=== PATIENT | female | born 1975 | race Caucasian/White ===

== ENCOUNTER 2022-09-25 15:28 | Inpatient (IN) | payer BC ==
[~2022-09-25] VITALS: Ht 170.2 cm; Wt 53.1 kg
[2022-09-25] MEDS ORDERED: SODIUM CHLORIDE 0.9% 1,000 ML IV ONE (19:00)
[2022-09-25] MEDS ORDERED: THIAMINE HCL 100 MG/1 ML 2ML VIAL IV ONE (19:00)
[2022-09-25] MEDS ORDERED: FOLIC ACID 1 MG, THIAMINE HCL 100 MG, MVI, ADULT NO.1 10 ML in DEXTROSE 5% WATER 1,000 ML IV ONE ×4 (19:00)
[2022-09-25] MEDS ORDERED: LORAZEPAM 2MG/ML CPJ IV ONE (19:00)
[2022-09-25 19:25] LABS: BASOPHILS % 0.4 % (0.0-2.0); HEMATOCRIT. 35.4 % (36.0-48.0); HEMOGLOBIN. 12.6 g/dL (12.0-16.0); MEAN CORPUSCULAR HEMOGLOBIN 34.4 pg (28.0-32.0); MEAN CORPUSCULAR VOLUME 96.4 fL (81.0-99.0); MEAN PLATELET VOLUME 7.2 fl (7.4-10.4); MONOCYTES % 4.2 % (2.0-8.0); NEUTROPHILS % 79.4 % (40.0-76.0); PLATELET 477 x1000/uL (130-400); RED BLOOD CELL COUNT 3.67 mill/uL (4.2-5.4)
[2022-09-25 19:31] LABS: CHLORIDE 97 mEq/L (98-107)
[2022-09-25 20:02] LABS: CLARITY URINE CLEAR (CLEAR); COLOR URINE YELLOW (YELLOW); KETONES URINE NEGATIVE (NEGATIVE); LEUKOCYTE ESTERASE URINE NEGATIVE (NEGATIVE); NITRITE URINE NEGATIVE (NEGATIVE); OCCULT BLOOD URINE NEGATIVE (NEGATIVE); PROTEIN URINE NEGATIVE (NEGATIVE); UROBILINOGEN URINE 0.2 E.U./dL (0.2-1.0)
[2022-09-25 20:13] LABS: HCG SCREEN NEGATIVE
[2022-09-25 20:17] LABS: INR 1.1; PARTIAL THROMBOPLASTIN TIME 29.7 sec (23.4-31.0); PROTHROMBIN TIME 11.9 sec (9.6-11.0)
[2022-09-25 20:33] LABS: *AMPHETAMINES SCREEN URINE NEGATIVE (NEGATIVE); *BARBITURATES SCREEN URINE NEGATIVE (NEGATIVE); *BENZODIAZEPINES SCREEN URINE NEGATIVE (NEGATIVE); *COCAINE SCREEN URINE NEGATIVE (NEGATIVE); METHADONE URINE SCREEN NEGATIVE (NEGATIVE); OPIATES URINE SCREEN NEGATIVE (NEGATIVE); PHENCYCLIDINE URINE SCREEN NEGATIVE (NEGATIVE)
[2022-09-25 20:34] LABS: CANNABINOID URINE SCREEN PRESUMTIVE POSITIVE (NEGATIVE)
[2022-09-25 20:49] LABS: ETHANOL BLOOD 326 mg/dL
[2022-09-26] MEDS: LORAZEPAM 2MG/ML CPJ IV PRN ×3 (01:08→16:23)
[2022-09-26 02:00] VITALS: BP 129/86
[2022-09-26 08:00] VITALS: BP 145/99
[2022-09-26] MEDS ORDERED: DOCUSATE SODIUM 100MG CAPSULE PO PRN (09:45)
[2022-09-26] MEDS ORDERED: ACETAMINOPHEN 325MG TABLET PO PRN ×2 (09:45)
[2022-09-26] MEDS ORDERED: GUAIFENESIN 200MG/10ML SUGAR FREE UDC PO PRN (09:45)
[2022-09-26] MEDS ORDERED: MAGNESIUM/ALUMINUM HYDROXIDE/SIMETHICONE 30ML UDC PO PRN (09:45)
[2022-09-26] MEDS ORDERED: ONDANSETRON HCL 4MG/2ML INJ IV PRN (09:45)
[2022-09-26] MEDS ORDERED: IPRATROPIUM/ALBUTEROL 0.5-3(2.5)MG/3ML NEB HHN PRN (09:45)
[2022-09-26] MEDS ORDERED: QUET300T2 PO (09:58)
[2022-09-26] MEDS ORDERED: ATEN50TA MT (09:59)
[2022-09-26] MEDS ORDERED: GABA-290 MT (09:59)
[2022-09-26] MEDS ORDERED: POTASSIUM CHLORIDE 20MEQ TABLET SR PO NR (10:00)
[2022-09-26] MEDS: ENOXAPARIN 40MG/0.4ML SYR SUBCUT SCH (10:21)
[2022-09-26] MEDS: FAMOTIDINE 20MG TABLET PO SCH ×2 (10:21→22:17)
[2022-09-26] MEDS: GABAPENTIN 300MG CAPSULE PO SCH ×2 (11:42→17:33)
[2022-09-26 12:00] VITALS: BP 144/87
[2022-09-26 16:00] VITALS: BP 135/94
[2022-09-26 18:14] VITALS: BP 130/86
[2022-09-26] MEDS ORDERED: FOLIC ACID 1 MG, THIAMINE HCL 100 MG, MVI, ADULT NO.1 10 ML in DEXTROSE 5% WATER 1,000 ML IV ONE ×4 (21:00)
[2022-09-26] MEDS ORDERED: QUETIAPINE FUMARATE 50MG TABLET PO SCH (21:00)
[2022-09-26] MEDS ORDERED: ATENOLOL 50 MG TABLET PO SCH (21:00)
[2022-09-27 04:00] VITALS: BP 114/77
[2022-09-27 08:00] VITALS: BP 120/79
[2022-09-27 08:44] LABS: BASOPHILS % 0.3 % (0.0-2.0); EOSINOPHILS % 0.5 % (0.0-5.0); HEMATOCRIT. 35.1 % (36.0-48.0); HEMOGLOBIN. 12.2 g/dL (12.0-16.0); LYMPHOCYTES % 15.9 % (20.0-50.0); MEAN CORPUSCULAR HEMOGLOBIN 33.5 pg (28.0-32.0); MEAN CORPUSCULAR VOLUME 96.1 fL (81.0-99.0); MEAN PLATELET VOLUME 7.5 fl (7.4-10.4); MONOCYTES % 3.4 % (2.0-8.0); NEUTROPHILS % 79.9 % (40.0-76.0); PLATELET 412 x1000/uL (130-400); RED BLOOD CELL COUNT 3.65 mill/uL (4.2-5.4)
[2022-09-27 09:02] LABS: CHLORIDE 94 mEq/L (98-107)
[2022-09-27] MEDS: GABAPENTIN 300MG CAPSULE PO SCH (09:21)
[2022-09-27] MEDS: FAMOTIDINE 20MG TABLET PO SCH (09:21)
[2022-09-27 09:24] LABS: T4 FREE 1.15 ng/dL (0.76-1.46)
[2022-09-27] MEDS: ENOXAPARIN 40MG/0.4ML SYR SUBCUT SCH (10:09)
[2022-09-27] MEDS ORDERED: THIA50TA12 PO (11:29)
[2022-09-27] MEDS ORDERED: MULT-1146 MT (11:29)
[2022-09-27 12:00] VITALS: BP 120/68
[2022-09-27 12:09] VITALS: BP 120/74
== END 2022-09-27 12:45 | disposition home or self-care (01) | DRG 897 ==
LOC: ER 15:28 → EDBD 15:28 → 7WST 19:30 → EDBEDREQTM 19:41 → EDBEDREQ 19:41
PROVIDERS: ADMIT Internal Medicine; ATTEND Internal Medicine
DX: F10.229 Alcohol dependence with intoxication, unspecified (principal); F31.9 Bipolar disorder, unspecified; F10.239 Alcohol dependence with withdrawal, unspecified; F12.90 Cannabis use, unspecified, uncomplicated; I10 Essential (primary) hypertension; E87.6 Hypokalemia; D75.839 Thrombocytosis, unspecified; Z79.899 Other long term (current) drug therapy; Y90.8 Blood alcohol level of 240 mg/100 ml or more
CPT/HCPCS: 36415; 80053; 80305; 80307; 80320; 80329; 81003; 84439; 84443; 84703; 85025; 85379; 99291; J1650; J2060; J3411; J3490; J7030; J7070; G0480